=== PATIENT | male | born 1980 | race Caucasian/White ===

== ENCOUNTER 2018-03-15 07:00 | Emergency (ER) | payer OTHER ==
[~2018-03-15] VITALS: Ht 182.9 cm; Wt 113.4 kg
[2018-03-15] MEDS ORDERED: NAPROSYN500 MG PO (08:59)
[2018-03-15] MEDS ORDERED: HYDROCODONE-AP1 EAC6 PO (08:59)
[2018-03-15] MEDS ORDERED: FLEXERIL PO (08:59)
[2018-03-15 09:09] VITALS: BP 147/109
== END 2018-03-15 09:10 | disposition home or self-care (01) ==
LOC: M.ERS 07:00
DX: S20.211A Contusion of right front wall of thorax, initial encounter (principal); I10 Essential (primary) hypertension; F17.210 Nicotine dependence, cigarettes, uncomplicated; V29.9XXA Motorcycle rider (driver) (passenger) injured in unspecified traffic accident, initial encounter; Y93.89 Activity, other specified; Y92.89 Other specified places as the place of occurrence of the external cause; Y99.8 Other external cause status